=== PATIENT | male | born 1950 | race Caucasian/White ===

== ENCOUNTER 2020-02-07 15:43 | Inpatient (IN) | payer OTHER, MEDICAID ==
[~2020-02-07] VITALS: Ht 193 cm; Wt 113.4 kg
[2020-02-07 15:53] VITALS: BP 112/77
[2020-02-07 16:07] LABS: BASO % 0.6 % (0.0-1.0); EOS # 0.3 10*3/uL (0.0-0.4); EOS % 4.2 % (1.0-4.0); LYMPH # 0.9 10*3/uL (1.3-4.4); LYMPH % 13.6 % (27.0-41.0); MEAN CELL VOLUME 95.7 fl (80.0-94.0); MEAN CORPUSCULAR HGB 30.7 pg (27.0-31.0); MEAN CORPUSCULAR HGB CONC 32.1 g/dl (33.0-37.0); MEAN PLATELET VOLUME 9.2 fl (9.6-12.3); MONO # 0.7 10*3/uL (0.1-1.0); MONO % 9.4 % (3.0-9.0); NEUT % 71.9 % (47.0-73.0); PLATELET COUNT AUTOMATED 196 10*3/uL (130-400); RED BLOOD COUNT 3.45 10*6/uL (4.50-5.90); RED CELL DISTRI WIDTH 14.5 % (0-14.5); WHITE BLOOD COUNT 6.9 10*3/uL (4.8-10.8)
[2020-02-07 16:25] LABS: ALBUMIN 3.2 gm/dl (3.1-4.5); CREATININE 1.55 mg/dL (0.70-1.30); POTASSIUM 4.4 mmol/L (3.5-5.1); TOTAL PROTEIN 7.2 gm/dL (6.4-8.2)
--- NOTE | 2020-02-07 16:59 | NUR ---
PATIENT VOICED NO COMPLAINTS WHILE AT BEDSIDE, NO BEHAVIORS NOTED AT THIS TIME. PATIENT PLEASANT AND COOPERATIVE. WILL CONTINUE TO MONITOR.
[2020-02-07 17:36] LABS: BACTERIA TRACE; BILIRUBIN NEGATIVE (NEGATIVE); BLOOD TRACE-LYSED (NEGATIVE); CLARITY CLEAR (CLEAR); COLOR YELLOW (YELLOW); GLUCOSE NEGATIVE (NEGATIVE); KETONE NEGATIVE (NEGATIVE); LEUKO ESTERASE NEGATIVE (NEGATIVE); NITRITE NEGATIVE (NEGATIVE); RBC 0-2 rbc/hpf (0-2); SPECIFIC GRAVITY 1.015 (1.005-1.030); UROBILINOGEN 0.2 E.U./dl (0.2-1.0)
[2020-02-07 17:39] LABS: URINE AMPHETAMINES < 1000 (1000ng/ml); URINE BARBITURATES < 200 (200ng/ml); URINE BENZODIAZEPINES < 200 (200ng/ml); URINE CANNABINOIDS (THC) < 50 (50ng/ml); URINE COCAINE < 300 (300ng/ml); URINE METHADONE < 300 (300ng/ml); URINE OPIATES < 300 (300ng/ml); URINE PHENCYCLIDINE < 25 (25ng/ml)
--- NOTE | 2020-02-07 18:28 | NUR ---
PATIENT RESTING IN BED WITH NO COMPLAINTS VOICED, WILL CONTINUE TO MONITOR.
--- NOTE | 2020-02-07 21:04 | NUR ---
PT RESTING IN BED AT THIS TIME. NO VOICED COMPLAINTS. CALL LIGHT WITHIN REACH. WILL CONTINUE TO MONITOR.
[2020-02-07 21:25] VITALS: BP 123/80
--- NOTE | 2020-02-07 21:25 | NUR ---
A 69, admitted to [address] [place] [address] BY BELA BRADFORD, under the services of GERALDO Weiss MD with a diagnosis of INTERMITTENT EXPLOSIVE DISORDER. Chief complaint is SEXUALLY INAPPROPRIATE BEHAVIOR. Patient arrived via [facility] from ER. Initial assessment completed. Vital signs taken and recorded. GERALDO WEISS MD notified of admission to the unit. Orders received. See assessment for past medical history, medications and allergies. Patient oriented to unit. [facility]. visitation policy reviewed. Clothing/patient valuable form completed. PIERO BULLARD
[2020-02-07] MEDS ORDERED: ARICEPT10 M1 PO (21:36)
[2020-02-07] MEDS ORDERED: CARVEDILOL12.5 MG PO (21:37)
[2020-02-07] MEDS ORDERED: FLOMAX0.4 MG PO (21:38)
[2020-02-07] MEDS ORDERED: GLIPIZIDE5 MG PO (21:39)
[2020-02-07] MEDS ORDERED: JANUVIA50 MG PO (21:41)
[2020-02-07] MEDS ORDERED: Mysoline50 MG PO (21:43)
[2020-02-07] MEDS ORDERED: OMEPRAZOLE MAGN20 M1 PO (21:43)
[2020-02-07] MEDS ORDERED: REMERON15 M2 PO (21:44)
[2020-02-07] MEDS ORDERED: TRAZODONE50 MG PO (21:45)
[2020-02-07] MEDS ORDERED: XARE20MG PO (21:46)
[2020-02-07] MEDS ORDERED: ZYLOPRIM100 MG PO (21:47)
--- NOTE | 2020-02-07 23:58 | NUR ---
cALL PLACED TO HOSPITALIST REGARDING MED REC AND ORDERS. tO BE PLACED UNDER dR Estrada
--- NOTE | 2020-02-08 00:15 | NUR ---
ON UNIT, UPDATED. NO NEW ORDERS RECEIVED.
--- NOTE | 2020-02-08 00:25 | NUR ---
PATIENT ALERT AND ORIENTED X4, COOPERATIVE WITH ADMISSION ASSESSMENT. SKIN ASSESSMENT ALSO COMPLETED, SEE DOCUMENTATION. PT NOTED TO HAVE SEXUALLY INAPPROPRIATE BEHAVIORS, EXPOSED GENITAL AREA X2 TO STAFF DURING QUESTIONING, REDIRECTED AND EDUCATED ON APPROPRIATE BEHAVIOR WITH VERBAL UNDERSTANDING. PT KARISHMA LIFT, X2-3 ASSIST WITH CARE, INCONTINENT/CONTINENT OF BOWEL AND BLADDER. PT DENIES SI/HI, HALLUCINATIONS, OR PAIN. NO NOTED RESPONDING TO INTERNAL STIMULI. MEDICATION COMPLIANT WITHOUT DIFFICULTY AFTER REVIEW. PT CURRENTLY LAYING DOWN WITH EYES CLOSED, RESPIRATIONS EASY AND REGULAR, NO DISTRESS. PLAN IS TO CONTINUE TO MONITOR MOOD AND BEHAVIORS. PROVIDE 1:1 WITH THERAPEUTIC INTERVENTIONS. ENCOURAGE MEDICATION COMPLIANCE AND EDUCATE. MAINTAIN Q 15 MIN CHECKS AND PRN FOR SAFETY.
--- NOTE | 2020-02-08 01:06 | NUR ---
24 HR chart check completed.
--- NOTE | 2020-02-08 06:00 | NUR ---
SLEPT 5 HOURS.
[2020-02-08 07:05] LABS: THYROID STIM HORMONE (HS) 2.73 uIU/ml (0.358-4.75)
--- NOTE | 2020-02-08 07:27 | NUR ---
SUZETTEJIMMY [id number] Please refer to the physician's history and physical for past medical history, comorbid conditions, and allergies. Diagnosis: INTERMITTENT EXPLOSIVE DISORDER Joel Score: 14,MODERATE RISK WOUND DESCRIPTIONS: Wound Number: 1 Location of the wound: left great toe dorsal aspect Type of wound: scab Thickness: Partial Size: 0.5cm x 0.5cm x <0.1cm Tunneling: none Undermining: none Sinus Tract: none Presence of Exudate: none Amount: none Color: Red Odor: None Periwound Skin Appearance: Normal Wound edges: approximated Pain (associated with wound): none at time of assessment How does patient state this happened? pt unable to state how this happened Wound Number: 2 Location of the wound: right 2nd toe pink and blanchable. No open areas at time of assessment. No drainage noted at time of assessment. Wound Number: 3 Location of the wound: left 2nd toe pink and blanchable. No open areas noted at time of assessment. No drainage noted at time of assessment. Intact scar tissue noted to left buttocks. No open areas at time of assessment. No drainage noted at time of assessment. 2 intact scabbed areas noted to right knee at time of assessment no drainage noted at time of assessment. No open areas noted at time of assessment. Tilden and blanchable areas noted to 1st, 2nd and 3rd right toes at time of assessment Tilden and blanchable areas noted to 1st and 2nd toe on left Surface the patient is resting on: Proform SKIN PREVENTION RECOMMENDATION: 1. Pressure redistribution support surface as appropriate 2. Elevate heels 3. Remove boots/TEDS every shift and reapply 4. Head of bed 30 degrees as tolerated 5. Assess nutrition and hydration 6. Manage moisture 7. Avoid the use of containment devices while in bed 8. Use absorptive products on surfaces limit layers of linens on bed 9. Turn and reposition every 1-2 hours in bed and every 1 hour in chair as tolerated 10. Weight shifts every 15 minutes while up in chair 11. Offloading with pillows or device to keep heels elevated off bed 12. Monitor skin at least every shift 13. Inspect under medical devices twice a day WOUND TREATMENT RECOMMENDATIONS: Consult podiatry for area to left great toe Heel raiser pro boots to bilateral feet Cleanse entire buttocks with soap and water and apply hydraguard every shift and prn for soiling Wheelchair cushion when oob.
[2020-02-08 07:44] VITALS: BP 130/79
--- NOTE | 2020-02-08 08:10 | NUR ---
Patient up in gerichair at the dining room table eating breakfast at this time. No voiced complaints. No s/s of distress noted, resps even and unlabored on room air. Skin integrity interventions maintained, encouraged to shift weight in chair frequently and assisted when needed. Falling star program maintained with alarms intact/audible. Q15 minute checks maintained for safety.
--- NOTE | 2020-02-08 08:20 | NUR ---
Dr. Jorge notified of wound care recommendations.
--- NOTE | 2020-02-08 08:30 | NUR ---
Treatment plan meeting was held this a.m. with JEWELL Casas, Dr. Stout via telephone, RN, AT, LEONILA-S and Composite Laminator. Plan for discharge Next Week. Pt. came to [facility] from [place] [place]. Will reach out to facility today to discuss discharge Planning.
--- NOTE | 2020-02-08 08:32 | NUR ---
Nursing screen received and chart reviewed. Pt is a 69 y/o male admitted for intermittent explosive disorder. If pt has a decline of baseline with ADLs, transfers or functional mobility please send OT orders. Thank you. Analy Bowser OTR/L
--- NOTE | 2020-02-08 08:51 | NUR ---
PHYSICAL THERAPY Nursing screen received and chart reviewed. Patient was admitted from [facility] for intermittent explosive disorder. Recommend PT services if decline from baseline functional mobility presents. Thank you. Torri Koroma,PT,DPT.
[2020-02-08 09:53] LABS: VITAMIN D, 25-HYDROXY 35.3 ng/mL (30-100)
--- NOTE | 2020-02-08 11:37 | NUR ---
AM GROUP PT ATTENDED MORNING GROUP THERAPY AND PARTICIPATED BY READING THE NEWSPAPER, LISTENING TO MUSIC AND SOCIALIZING WITH PEERS. PT EXHIBITED NO SEXUAL INAPPRORIATE BEHAVIORS WHILE IN GROUP.
--- NOTE | 2020-02-08 12:00 | NUR ---
Shift chart check completed.
--- NOTE | 2020-02-08 12:00 | NUR ---
Shift chart check completed.
--- NOTE | 2020-02-08 13:00 | NUR ---
Skin assessment completed. Pt noted to have scab to left great toe on dorsal aspect measuring 0.5cm x 0.5cm x <0.1cm. Right second toe pink and blanchable. Left second toe pink and blanchable. Scar on left buttocks. Two intact scabs to right knee. Black area on right great toenail. First, second, and third right toes noted to have red areas that are blanchable. No other areas or skin concerns noted at this time. Heel protectors, seat cushion, and buttocks cleansed with soap & water, hydroguard applied per orders. Pt shifts weight independently and encouraged to do so. Q15 minute checks maintained for safety.
--- NOTE | 2020-02-08 14:08 | NUR ---
GROUP A/MANICURES PT ATTENDED GROUP THERAPY AND WAS CONTENT TO OBSERVE AND SOCIALIZE. PT EXHIBITED NO INAPPROPRIATE SEXUAL BEHAVIORS WHILE IN GROUP.
--- NOTE | 2020-02-08 14:58 | NUR ---
Spoke with Claudia at [facility]. 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 Clinical Updates faxed to facility.
--- NOTE | 2020-02-08 16:04 | NUR ---
No adverse moods or behaviors noted this shift. Patient is alert to person and place. Reorientation effective with time. Patient is interactive and participating with group/activities. Medication compliant with no difficulties and education provided. Eating and drinking adequately. Voices needs and makes know. Patient is in gerichair and gabby for transfers, 2 assist with ADLs, toileting, and care. Denies SI/HI, hallucinations, delusions or pain. No s/s of interacting with internal stimuli. No s/s of paranoid or delusional thought process noted. No s/s of distress noted. Resps even and unlabored on room air. Falling star program maintained for safety. Q15 minute checks maintained for safety.
[2020-02-08 20:02] VITALS: BP 120/67
--- NOTE | 2020-02-08 20:20 | NUR ---
HEEL PROTECTORS APPLIED TO PREVENT PRESSURE ON HEELS
--- NOTE | 2020-02-08 22:18 | NUR ---
NO OVERT SEXUAL ADVANCES TONIGHT. ISOLATIVE TO SELF IN DININGROOM BUT INTERACTIVE WITH STAFF. DENIES ANY ISSUES AT THIS TIME. WILL MONITOR FOR CHANGES IN MOOD/BEHAVIOR AND Q 15 MINUTES AND PRN FOR SAFETY
--- NOTE | 2020-02-09 02:05 | NUR ---
24 HR chart check completed.
--- NOTE | 2020-02-09 03:20 | NUR ---
WOUND CARE HERE
--- NOTE | 2020-02-09 04:18 | NUR ---
Upon discharge recommend patient to follow up for wound care in outpatient setting continue current wound care orders at discharging facility.
--- NOTE | 2020-02-09 06:35 | NUR ---
SLEPT APPROX 7.5 INTERUPTED SLEEP. INTERACTIVE AND SMILING THIS MORNING. INCONTINENT OF URINE AND STOOL WHILE CHANGING. UP INTO [facility] CHAIR AND AM CARE DONE. BSG DONE.NO INSULIN REQUIRED.
[2020-02-09 07:34] VITALS: BP 130/77
--- NOTE | 2020-02-09 07:51 | NUR ---
JIMMY BRADFORD [id number] Please refer to the physician's history and physical for past medical history, comorbid conditions, and allergies. Diagnosis: INTERMITTENT EXPLOSIVE DISORDER Joel Score: 14,MODERATE RISK WOUND DESCRIPTIONS: Wound Number: 2 Location of the wound: right 2nd toe Thickness: Full Size: 0.5cm x 0.5cm x <0.1cm Tunneling: none Undermining: none Sinus Tract: none Presence of Exudate: none Amount: None Color: Purple, dark red Odor: None Periwound Skin Appearance: Erythema Wound edges: intact blood filled blister Pain (associated with wound): none time of assessment How does patient state this happened? pt unsure how this happened Wound Number: 5 Location of the wound: right 3rd toe Thickness: Partial Size: 1.1cm x 0.5cm x 0.1cm Tunneling: none Undermining: none Sinus Tract: none Presence of Exudate: none Amount: None Color: Juda Odor: None Periwound Skin Appearance: Normal Wound edges: approximated Pain (associated with wound): none at time of assessment How does patient state this happened? pt unsure how this happened Surface the patient is resting on: Proform SKIN PREVENTION RECOMMENDATION: 1. Pressure redistribution support surface as appropriate 2. Elevate heels 3. Remove boots/TEDS every shift and reapply 4. Head of bed 30 degrees as tolerated 5. Assess nutrition and hydration 6. Manage moisture 7. Avoid the use of containment devices while in bed 8. Use absorptive products on surfaces limit layers of linens on bed 9. Turn and reposition every 1-2 hours in bed and every 1 hour in chair as tolerated 10. Weight shifts every 15 minutes while up in chair 11. Offloading with pillows or device to keep heels elevated off bed 12. Monitor skin at least every shift 13. Inspect under medical devices twice a day WOUND TREATMENT RECOMMENDATIONS: Podiatry is already on consult and is to see patient on 02/09/20 await treatment order from podiatry since they are on consult
--- NOTE | 2020-02-09 08:30 | NUR ---
Treatment Plan meeting was held this a.m. with Dr. Stout via telephone. RN, AT, LADLE LINER-S and Medical Sales Representative. Plan for discharge Thursday. Pt. will return to [facility].
--- NOTE | 2020-02-09 11:07 | NUR ---
case management called for clinical review, spoke to Luda, inpatient U stay is approved for 8 days with next review day 02/14/20. authorization number is [id number]
--- NOTE | 2020-02-09 11:21 | NUR ---
PATIENT IS ALERT TO PERSON, PLACE AND SIUTATION WITH SLIGHT CONFUSION AND MEMORY DEFICITS. MOOD IS STABLE. DENIES ANY HALLUCINATIONS, DELUSIONS, HI/SI OR PAIN. NO SEXUALLY INAPPROPRIATE BEHAVIOR OR GESTURES NOTED. 2 PERSON ASSIST WITH ACTIVITIES OF DAILY LIVING, INCONTINENT OF BOWEL AND BLADDER. SET UP FOR MEALS, INTAKES ARE GOOD WITH ADEQUATE FLUIDS. TRANSFERS VIA MECHANICAL LIFT WITH 2 ASSIST. INTERACTIVE WITH STAFF AND OTHER PATIENTS. PARTICIPATED IN GROUP SESSIONS. MEDICATION COMPLAINT WITH EDUCATION PROVIDED. Q 15 MINUTE SAFETY CHECKS MAINTAINED. CONTINUE TO MONITOR FOR BEING SEXUALLY INAPPROPRIATE. PROVIDE ONE ON ONE AND REDIRECTION NEEDED.
--- NOTE | 2020-02-09 11:39 | NUR ---
AM GROUP PT ATTENDED GROUP THERAPY AND PARTICIPATED BY READING THE NEWSPAPER AND SOCIALIZING. PT HAS EVIDENT MEMORY GAPS BUT EXHIBITED NO SEXUALLY INAPPROPRIATE BEHAVIORS WHILE IN GROUP.
--- NOTE | 2020-02-09 13:23 | NUR ---
P: SEXUALLY INAPPROPRIATE, SITTING IN MILTON CHAIR FONDLING SELF IN DINING ROOM DURING GROUP SESSION IN PRESENT OF OTHER PATIENTS AND STAFF. I: PATIENT REMOVED FROM DINING ROOM, ASSISTED INTO QUIET ROOM, ONE ON ONE PROVIDED REGARDING INAPPROPRIATE BEHAVIORS IN THE PRESENT OF STAFF AND OTHER PATIENTS. DR COOPER NOTIFIED AND CELEXA INCREASED PER ORDER. R: ONE ON ONE EFFECTIVE. PATIENT ACKOWLEDGE UNDERSTANDING AND BEING INAPPROPRIATE. P: CONTINUE TO MONITOR FOR SEXUALLY INAPPROPRIATE BEHAVIORS. PROVIDE ONE ON ONE AND REDIRECTION NEEDED.
--- NOTE | 2020-02-09 13:30 | NUR ---
PATIENT'S BLOOD SUGAR PRIOR TO LUNCH WAS 69, 100% LUNCH CONSUMED AND BLOOD SUGAR RECHECKED UP TO 148.
--- NOTE | 2020-02-09 15:28 | NUR ---
GROUP A PT DID NOT ATTEND GROUP THERAPY.PT WAS IN BED RESTING.
--- NOTE | 2020-02-09 17:47 | NUR ---
COVID SCREENING COMPLETED AND SENT TO LAB.
[2020-02-09 20:00] VITALS: BP 125/81
--- NOTE | 2020-02-09 22:04 | NUR ---
P--INAPPROPRIATE SEXUALITY P--REVIEWED MEDICATIONS PRIOR TO GIVING. EXPLAINED DRESSNG ORDERS I WAS DOING TO TOES ON RIGHT FOOT. TALKED ABOUT THE DAY AND SHOWS HE SAW. SNACK PROVIDED. NO INAPPROPRIATE SEXUAL ACTIVITY THIS SHIFT R- DRESSING MY TOE GREAT. THAT LOOKS LIKE I HAVE A HUGE WOUND THERE AND STARTS LAUGHING. INTERACTIVE WITH PEERS AND STAFF. NO DISCUSSION OF EARLIER EVENTS P- MONITOR FOR CHANGES IN MOOD/BEHAVIOR AND Q 15 MINS AND PRN FOR SAFETY
--- NOTE | 2020-02-10 02:56 | NUR ---
24 HR chart check completed.
--- NOTE | 2020-02-10 06:13 | NUR ---
SLEPT 7 HOURS UNINTERUPTED.
[2020-02-10 07:40] VITALS: BP 126/78; BP 126/8
--- NOTE | 2020-02-10 08:30 | NUR ---
Treatment Plan meeting was held this a.m. with JEWELL Casas, RN, AT, LEONILA-S and Cloth Printing Back Tender. Plan for discharge Next Week. Pt. will return to [facility].
--- NOTE | 2020-02-10 09:06 | NUR ---
DR CHENEY ON UNIT TO ASSESS PT, UPDATE PROVIDED.
--- NOTE | 2020-02-10 09:52 | NUR ---
Spoke with Claudia at [facility]. Notified of plans to discharge Next week. Clinical Updates faxed to facility.
--- NOTE | 2020-02-10 11:41 | NUR ---
AM GROUP PT ATTENDED MORNING GROUP THERAPY AND PARTICIPATED BY READING THE NEWSPAPERS. PT WAS QUIET AND FOCUSED. PT EXHIBITED NO INAPPROPRIATE SEXUAL BEHAVIORS WHILE IN GROUP.
--- NOTE | 2020-02-10 14:06 | NUR ---
GROUP A / GRACE PT DID NOT ATTEND GROUP THERAPY. PT WAS TAKEN FOR TESTING.
--- NOTE | 2020-02-10 14:32 | NUR ---
PATIENT IS ALERT TO PERSON, PLACE AND SITUATION; ABLE TO VOICE NEEDED. DENIES BEING DEPRESSSION, HI/SI OR PAIN, DENIES ANY HALLUCINATIONS OR DELUSIONS. MEMORY GAPS NOTED. MEDICAITON COMPLAINT WITH EDUCAITON PROVIDED. Q 15 MINUTE SAFETY CHECKS MAINTAINED. 2 PERSON ASSIST WITH ACTIVITIES OF DAILY LIVING, INCONTINENT OF BOWEL AND BLADDER. SET UP FOR MEALS, INTAKES ARE GOOD WITH ADEQUATE FLUIDS. 2 PERSON ASSIST WITH TRANSFERS VIA MECHANICAL LIFT. ATTENDED MORNING GROUP AND INTERACTIVE WITH STAFF AND OTHER PATIENTS. NO SEXUALLY INAPPROPRIATE BEHAVIORS OBSERVED. CONTINUE TO MONITOR FOR THESE BEHAVIORS. PROVIDE ONE ON ONE AND REDIRECTION NEEDED.
--- NOTE | 2020-02-10 15:42 | NUR ---
GROUP B PT DID NOT ATTEND AFTERNOON GROUP THERAPY. PT WAS IN BED RESTING.
[2020-02-10 20:00] VITALS: BP 134/84
--- NOTE | 2020-02-10 20:43 | NUR ---
P--DEMANDING, ANXIOUS, PREOCCUPIED I-DISCUSSED DAYS EVENTS AND REVIEWED MEDICATIONS. NO C/O. MEDICATION COMPLIANT R--I WANT TO GO TO BED. IS IT GOING TO BE A LONG TIME. ONCE IN BED REMINDED US TO GET HIM UP BY 6 P--MONITOR FOR CHANGES IN BEHAVIOR/MOOD. Q 15 MIN WATCHES FOR SAFETY. PROVIDE EMOTIONAL SUPPORT NEEDED
--- NOTE | 2020-02-11 05:50 | NUR ---
HAS BEEN SLEEPING WELL. MOSTLY CLIENT IS A SIDE SLEEPING. MOVES SELF IN BED. HAS BEEN SLEEPNG SINCE 2130PM. 24 HR chart check completed.
[2020-02-11 08:00] VITALS: BP 137/82
--- NOTE | 2020-02-11 09:00 | NUR ---
DR CHENEY ON UNIT TO ASSESS PT.
--- NOTE | 2020-02-11 16:06 | NUR ---
PATIENT COMPLAINING OF UPSET STOMACH, PRN MAALOX 30ML PO GIVEN.
--- NOTE | 2020-02-11 17:06 | NUR ---
NO FURTHER COMPLAINTS OF UPSET STOMACH. PRN MAALOX EFFECTIVE.
--- NOTE | 2020-02-11 18:40 | NUR ---
Shift chart check completed.
--- NOTE | 2020-02-11 18:42 | NUR ---
PATIENT IS ALERT TO PERSON, PLACE AND SITUATION; ABLE TO VOICE NEEDED. DENIES BEING DEPRESSSION, HI/SI OR PAIN, DENIES ANY HALLUCINATIONS OR DELUSIONS. MEMORY GAPS NOTED. MEDICAITON COMPLAINT WITH EDUCAITON PROVIDED. Q 15 MINUTE SAFETY CHECKS MAINTAINED. 2 PERSON ASSIST WITH ACTIVITIES OF DAILY LIVING, INCONTINENT OF BOWEL AND BLADDER. SET UP FOR MEALS, INTAKES ARE GOOD WITH ADEQUATE FLUIDS. 2 PERSON ASSIST WITH TRANSFERS VIA MECHANICAL LIFT. INTERACTIVE WITH STAFF AND OTHER PATIENTS. NO SEXUALLY INAPPROPRIATE BEHAVIORS OBSERVED. CONTINUE TO MONITOR FOR THESE BEHAVIORS. PROVIDE ONE ON ONE AND REDIRECTION NEEDED.
[2020-02-11 20:00] VITALS: BP 121/74
--- NOTE | 2020-02-12 00:01 | NUR ---
P-PREOCCUPIED, AGITAION, CONFUSION I-REDIRECTION WITH 1:1 THERAPEUTIC INTERVENTIONS AND COMMUNICATION. PRESENT REALITY. EDUCATE AND ENCOURAGE MEDICATION COMPLIANCE R-MEDICATION COMPLIANT AT HS. PATIENT PROVIDED NOURISHMENT AND FLUIDS AT HS. PATIENT WITH NO HALLUCINATIONS OR DELUSIONS. PATIENT WITH NO HOMICIDAL IDEATIONS AND DENIES SUICIDAL IDEATIONS AT THIS TIME. PATIENT ARGUING WITH PEERS IN DINING AREA AT HS. PATIENT INTRUSIVE AND PREOCCUPIED WITH PEER IN DINING AREA AND OFTEN DISRUPTIVE AND YELLING OUT. PATIENT WITH NO SEXUAL INAPPRORIATE BEHAVIORS AT THIS TIME. P-CONTINUE TO ENCOURAGE MEDICATION COMPLIANCE, CONTINUE TO PRESENT REALITY, ENCOURAGE GROUP THERAPY WHILE AWAKE
--- NOTE | 2020-02-12 06:57 | NUR ---
PATIENT SLEPT 8 HOURS UNINTERRUPTED SLEEP THROUGHOUT SHIFT. Q 15 MINUTE CHECKS MAINTAINED. 24 HR chart check completed.
[2020-02-12 08:00] VITALS: BP 130/84
--- NOTE | 2020-02-12 09:00 | NUR ---
DR. CHENEY ON UNIT TO ASSESS PATIENT.
--- NOTE | 2020-02-12 16:00 | NUR ---
Shift chart check completed.
--- NOTE | 2020-02-12 18:58 | NUR ---
P: DEMAMING, IRRITABLE MOOD AND YELLING OUT AFTER DINNER AND DISTRUBING OTHER PATIENTS. I: ONE ON ONE, REDIRECTION/ORIENTION, ASSIST TO QUIET ROOM WITH LOW STIMULUS, PROVIDE SPACE NEEDED. R: PATIENT IS ALERT TO PERSON, PLACE-HOSPITAL AND SITUATION WITH CONFUSION. MOOD IS IRRITABLE. DENIES ANY HALLUCINATIONS, DELUSIONS, HI/SI OR PAIN. NO RESPONSE TO INTERNAL STIMULI. MEDICATION COMPLAINT. Q 15 MINUTE SAFETY CHECKS MAINTAINED. 2 PERSON ASSIST WITH ACTIVITIES OF DAILY LIVING, INCONTINENT OF BOWEL AND BLADDER. SET UP FOR MEALS, INTAKES ARE GOOD WITH ADEQUATE FLUIDS. TRANSFER 2 ASSIST VIA MECHANICAL LIFT. INTERACTIVE WITH STAFF. UP FOR MEALS THAN DEMANDS TO BE PUT IN BED AND RUDE TO STAFF. NO SEXUAL INAPPROPRIATE BEHAVIORS. P: CONTINUE TO MONITOR FOR SEXUAL INAPPROPRIATE BEHAVIORS, MOOD, VERBAL AGGRESSION TOWARDS STAFF. PROVIDE ONE ON ONE, REDIRECTION/ORIENTATION. CHANGE OF ENVIRONMENT AND PROVIDE SPACE NEEDED.
[2020-02-12 20:00] VITALS: BP 134/83
--- NOTE | 2020-02-12 23:46 | NUR ---
P-DEMANDING, AGITAION, CONFUSION I-REDIRECTION WITH 1:1 THERAPEUTIC INTERVENTIONS AND COMMUNICATION. PRESENT REALITY. EDUCATE AND ENCOURAGE MEDICATION COMPLIANCE R-MEDICATION COMPLIANT AT HS. PATIENT PROVIDED NOURISHMENT AND FLUIDS AT HS. PATIENT WITH NO HALLUCINATIONS OR DELUSIONS. PATIENT WITH NO HOMICIDAL IDEATIONS AND DENIES SUICIDAL IDEATIONS AT THIS TIME. PATIENT PREOCCUPIED WITH LAYING DOWN IN BED. PATIENT YELLING OUT INTERMITTENTLY THROUGHOUT SHIFT. PATIENT WITH NO SEXUAL INAPPRORIATE BEHAVIORS AT THIS TIME. P-CONTINUE TO ENCOURAGE MEDICATION COMPLIANCE, CONTINUE TO PRESENT REALITY, ENCOURAGE GROUP THERAPY WHILE AWAKE
--- NOTE | 2020-02-13 06:57 | NUR ---
PATIENT SLEPT 8 HOURS OF UNINTERRUPTED SLEEP THROUGHOUT SHIFT. Q 15 MINUTE CHECKS MAINTAINED. 24 HR chart check completed.
[2020-02-13 07:44] VITALS: BP 144/78
--- NOTE | 2020-02-13 08:40 | NUR ---
SPEECH PATHOLOGY Nursing screen complete. Speech services are not indicated at this time however this dept. will remain available should future needs arise. ASNDER DUPREE MS[employer]-REFUSE AND RECYCLING WORKER
--- NOTE | 2020-02-13 09:00 | NUR ---
Treatment Plan meeting was held this a.m. with Dr. Stout, JEWELL Casas, RN, AT, CLIENT CUSTOMER MANAGER-S and Export Traffic Department Manager. Plan for discharge at the end of the week or early next week. Pt. will return to [facility].
--- NOTE | 2020-02-13 15:22 | NUR ---
Clinical Updates faxed to [facility] Attn: Claudia [phone].
--- NOTE | 2020-02-13 15:50 | NUR ---
GROUP A PT DID NOT ATTEND GROUP THERAPY. PT WAS IN BED RESTING.
--- NOTE | 2020-02-13 17:54 | NUR ---
PATIENT IS ALERT TO PERSON AND SITUATION WITH CONFUSION; ABLE TO VOICE NEEDED. DENIES BEING DEPRESSSION, HI/SI OR PAIN, DENIES ANY HALLUCINATIONS OR DELUSIONS. MOOD IS PLEASANT. MEMORY GAPS NOTED. MEDICAITON COMPLAINT WITH EDUCAITON PROVIDED. Q 15 MINUTE SAFETY CHECKS MAINTAINED. 2 PERSON ASSIST WITH ACTIVITIES OF DAILY LIVING, INCONTINENT OF BOWEL AND BLADDER. SET UP FOR MEALS, INTAKES ARE GOOD WITH ADEQUATE FLUIDS. 2 PERSON ASSIST WITH TRANSFERS VIA MECHANICAL LIFT. INTERACTIVE WITH STAFF AND OTHER PATIENTS. NO SEXUALLY INAPPROPRIATE BEHAVIORS OBSERVED. CONTINUE TO MONITOR FOR THESE BEHAVIORS. PROVIDE ONE ON ONE AND REDIRECTION NEEDED.
[2020-02-13 20:00] VITALS: BP 146/75
--- NOTE | 2020-02-14 00:59 | NUR ---
P-DEMANDING, AGITAION, CONFUSION I-REDIRECTION WITH 1:1 THERAPEUTIC INTERVENTIONS AND COMMUNICATION. PRESENT REALITY. EDUCATE AND ENCOURAGE MEDICATION COMPLIANCE R-MEDICATION COMPLIANT AT HS. PATIENT PROVIDED NOURISHMENT AND FLUIDS AT HS. PATIENT WITH NO HALLUCINATIONS OR DELUSIONS. PATIENT WITH NO HOMICIDAL IDEATIONS AND DENIES SUICIDAL IDEATIONS AT THIS TIME. PATIENT INTERACTING WITH PEERS IN DINING AREA. PATIENT PREOCCUPIED WITH GOING TO BED. PATIENT YELLING OUT AT TIMES THROUGHOUT SHIFT. PATIENT WITH NO SEXUAL INAPPRORIATE BEHAVIORS AT THIS TIME. P-CONTINUE TO ENCOURAGE MEDICATION COMPLIANCE, CONTINUE TO PRESENT REALITY, ENCOURAGE GROUP THERAPY WHILE AWAKE
--- NOTE | 2020-02-14 06:50 | NUR ---
PATIENT SLEPT 6-7 HOURS OF UNINTERRUPTED SLEEP THROUGHOUT SHIFT. Q 15 MINUTE CHECKS MAINTAINED. 24 HR chart check completed.
[2020-02-14 07:38] VITALS: BP 140/64
--- NOTE | 2020-02-14 08:30 | NUR ---
Treatment Plan meeting was held this a.m. with JEWELL Casas, RN, AT, LEONILA-S and Door Person. Plan for discharge Thursday. Pt. will return to [facility].
--- NOTE | 2020-02-14 10:50 | NUR ---
DR BA ON UNIT TO ASSESS PT, UPDATE PROVIDED.
--- NOTE | 2020-02-14 11:46 | NUR ---
AM GROUP/ EXERCISE AND PICTIONARY PT ATTENDED MORNING GROUP THERAPY AND PARTICIPATED IN ALL ACTIVITIES. PT EXHIBITED NO SEXUALLY INAPPROPRIATE BEHAVIORS WHILE IN GROUP. PT WAS FOCUSED AND ENGAGED.
--- NOTE | 2020-02-14 15:34 | NUR ---
GROUP A AND B PT DID NOT ATTEND AFTERNOON GROUP THERAPY. PT WAS IN BED RESTING.
--- NOTE | 2020-02-14 17:40 | NUR ---
PT ALERT TO PERSON, PLACE AND TIME, CONFUSION AND SHORT TERM MEMORY DEFICITS NOTED AT TIME. PT MED COMPLIANT WITHOUT DIFFICULTY, MED EDUCATION PROVIDED. PT CALM, MOOD IS STABLE. PT RESTLESS AT TIMES. NO HALLUCINATIONS OR DELUSIONS NOTED. PT DENIES ANY SUICIDAL THOUGHTS OR BEHAVIORS. PT UP TO A GERICHAIR, REQUIRES A KARISHMA LIFT FOR TRANSFERS, REQUIRES 2 STAFF ASSIST FOR CARE. PT INCONTINENT OF BOWEL AND BLADDER, CARE PROVIDED NEEDED. PLAN IS TO MONITOR PT BEHAVIORS ON Q15 MIN SAFETY CHECKS, ENCOURAGE MED COMPLIANCE AND PROVIDE MED EDUCATION, PROVIDE EMOTIONAL SUPPORT AND 1:1 FOR PT TO VOICE FEELINGS.
[2020-02-14 20:00] VITALS: BP 111/74
--- NOTE | 2020-02-14 23:36 | NUR ---
P-CONFUSION I-REDIRECTION WITH 1:1 THERAPEUTIC INTERVENTIONS AND COMMUNICATION. PRESENT REALITY. EDUCATE AND ENCOURAGE MEDICATION COMPLIANCE R-MEDICATION COMPLIANT AT HS. PATIENT PROVIDED NOURISHMENT AND FLUIDS AT HS. PATIENT WITH NO HALLUCINATIONS OR DELUSIONS. PATIENT WITH NO HOMICIDAL IDEATIONS AND DENIES SUICIDAL IDEATIONS AT THIS TIME. PATIENT INTERACTING WITH PEERS IN DINING AREA. PATIENT WITH NO SEXUAL INAPPRORIATE BEHAVIORS AT THIS TIME. P-CONTINUE TO ENCOURAGE MEDICATION COMPLIANCE, CONTINUE TO PRESENT REALITY, ENCOURAGE GROUP THERAPY WHILE AWAKE
--- NOTE | 2020-02-15 06:18 | NUR ---
PATIENT SLEPT 7 HOURS OF INTERRUPTED SLEEP THROUGHOUT SHIFT. Q 15 MINUTE CHECKS MAINTAINED. 24 HR chart check completed.
[2020-02-15 08:00] VITALS: BP 150/84
--- NOTE | 2020-02-15 08:30 | NUR ---
Treatment Plan meeting was held this a.m. with Dr. Stout via telephone, JEWELL Casas RN, AT, HOUSEHOLD RE[employer]IGERATOR [employer]CH[employer]IC[employer] and Geospatial Engineer. Plan for discharge today with return to [place]. Family was notified of planned discharge today and Facility updated this morning spoke with
[2020-02-15] MEDS ORDERED: CITALOPRAM20 MG PO (09:24)
[2020-02-15] MEDS ORDERED: RIVASTIGMINE1 EAC2 T (09:24)
[2020-02-15] MEDS ORDERED: MEMANTINE HCL10 MG PO (09:24)
--- NOTE | 2020-02-15 09:52 | NUR ---
D/C pictuires taken of wounds to feet. Patient refused pictures of his left buttock. Jessica VELASQUEZ caring for patient states that she will apply new dressing to patient's feet.
--- NOTE | 2020-02-15 11:59 | NUR ---
Discharge Paperwork faxed to [facility]. Transportation arranged with [facility] to transport with hot die picker time 1:00 p.m.
--- NOTE | 2020-02-15 12:44 | NUR ---
Patient discharging today returning to [facility]. Follow-up will be with Dr Stout, visiting psychiatrist. While at [facility], pt's inappropriate behaviors resolved. Pt continued to be pleasantly confused. Pt participated in programming as he was able.
--- NOTE | 2020-02-15 12:46 | NUR ---
NURSE TO NURSE REPORT GIVEN TO [place] AT [facility].
--- NOTE | 2020-02-15 13:18 | NUR ---
LEFT TEAM PRESENT WITH SECURITY FOR PATIENT DISCHARGE. PATIENT ASSISTED TO DOM, ALL BELONGIING GATHERED AND DISCHARGE INSTRUCTIONS SENT WITH PATIENT.
== END 2020-02-15 13:18 | DRG 883 ==
LOC: ED 15:43 → 3N 20:49
PROVIDERS: Emergency Medicine; ADMIT Psychiatry & Neurology Psychiatry
PROC: 0HBRXZZ Excision of Toe Nail, External Approach (ICD-10-PCS; principal; 2020-02-09)
DX: F63.81 Intermittent explosive disorder (principal); N17.0 Acute kidney failure with tubular necrosis; F33.1 Major depressive disorder, recurrent, moderate; I48.20 Chronic atrial fibrillation, unspecified; F02.81 Dementia in other diseases classified elsewhere, unspecified severity, with behavioral disturbance; Y99.8 Other external cause status; G30.9 Alzheimer's disease, unspecified; F63.9 Impulse disorder, unspecified; D53.9 Nutritional anemia, unspecified; Z66 Do not resuscitate; Z51.5 Encounter for palliative care; D72.810 Lymphocytopenia; E11.65 Type 2 diabetes mellitus with hyperglycemia; I10 Essential (primary) hypertension; E78.5 Hyperlipidemia, unspecified; M1A.9XX0 Chronic gout, unspecified, without tophus (tophi); E11.51 Type 2 diabetes mellitus with diabetic peripheral angiopathy without gangrene; S90.424A Blister (nonthermal), right lesser toe(s), initial encounter; S90.414A Abrasion, right lesser toe(s), initial encounter; S91.102A Unspecified open wound of left great toe without damage to nail, initial encounter; Z03.818 Encounter for observation for suspected exposure to other biological agents ruled out; Z88.0 Allergy status to penicillin; Z88.8 Allergy status to other drugs, medicaments and biological substances; Z79.899 Other long term (current) drug therapy; Z79.01 Long term (current) use of anticoagulants; B35.1 Tinea unguium; X58.XXXA Exposure to other specified factors, initial encounter; Y93.89 Activity, other specified; Y92.89 Other specified places as the place of occurrence of the external cause